=== PATIENT | female | born 1960 | race Caucasian/White ===

== ENCOUNTER 2016-10-20 09:02 | Outpatient (CLI) | payer OTHER | END 2016-10-20 09:04 | LOC: OUT 09:02 | PROVIDERS: ATTEND General Practice | DX: Z00.00 Encounter for general adult medical examination without abnormal findings (principal) | CPT/HCPCS: 99213 ==

== ENCOUNTER 2016-11-27 11:15 | Outpatient (CLI) | payer OTHER ==
[2016-11-27 11:33] LABS: BASOPHILS % 0.6 (0.0-1.5); EOSINOPHILS % 2.2 % (0.0-6.8); MEAN CORPUSCULAR HEMOGLOBIN 31.6 pg (28.0-34.0); MONOCYTES % 3.9 % (0.0-11.0); NEUTROPHILS # 4.6 # k/uL (1.4-7.7)
[2016-11-27 12:23] LABS: eGFR (African) > 60; eGFR (Non-African) > 60
== END 2016-11-27 11:16 ==
LOC: LAB 11:15
PROVIDERS: ATTEND General Practice
DX: Z01.812 Encounter for preprocedural laboratory examination (principal)
CPT/HCPCS: 36415; 80053; 85025; 85610; 85730

== ENCOUNTER 2016-12-01 07:04 | Day surgery (SDC) | payer OTHER ==
--- NOTE | 2016-12-01 14:37 | Operative Note ---
SURGEON: Juma Abrams MD ANESTHESIA: General with an LMA. ESTIMATED BLOOD LOSS: Less than 5 mL. PREOPERATIVE DIAGNOSIS: Postmenopausal bleeding. POSTOPERATIVE DIAGNOSIS: Postmenopausal bleeding. PROCEDURE PERFORMED: Diagnostic hysteroscopy with dilation and curettage (D & C). OPERATIVE PROCEDURE AND FINDINGS: I spoke with the patient prior to the operation. She was then taken to the operating room. After an adequate level of general anesthesia, she was placed in the lithotomy position, prepped and draped in a sterile fashion. A single- tooth tenaculum was placed on the cervix. The uterus was sounded to 7 cm. The cervix was dilated to a #29 Flores dilator. A hysteroscopy was performed using saline. She did have a significant amount of visible endometrium. The operating hysteroscope was removed and the dilation and curettage (D & C) was performed in the usual fashion with a sharp curette and the curettings were sent to pathology. This ended the operation. At the end of the operation, needle, sponge, and instruments were counted by the OR circulating nurse and speech therapist technician. I was told the counts were correct. The patient was awakened in the operating room and transferred from the operating room to the recovery room in very good condition. RHONDA
== END 2016-12-01 07:05 ==
LOC: OPSURG 07:04
PROVIDERS: ATTEND General Practice
DX: N95.0 Postmenopausal bleeding (principal)
CPT/HCPCS: 58558; J1100; J2250; J2405; J2704; J3010; J7030; J7120; S1016

== ENCOUNTER 2016-12-15 08:48 | Outpatient (CLI) | payer OTHER | END 2016-12-15 08:50 | LOC: OUT 08:48 | PROVIDERS: ATTEND General Practice | DX: N95.0 Postmenopausal bleeding (principal); Z79.890 Hormone replacement therapy | CPT/HCPCS: 99213 ==

== ENCOUNTER 2017-05-06 09:06 | Outpatient (CLI) | payer OTHER ==
[2017-05-06 09:39] LABS: eGFR (African) > 60; eGFR (Non-African) > 60
== END 2017-05-06 09:07 ==
LOC: LAB 09:06
PROVIDERS: ATTEND Family Medicine
DX: I10 Essential (primary) hypertension (principal); R53.82 Chronic fatigue, unspecified; Z11.59 Encounter for screening for other viral diseases
CPT/HCPCS: 36415; 80053; 80061; 84443; 86803

== ENCOUNTER 2017-06-01 09:06 | Outpatient (CLI) | payer OTHER | END 2017-06-01 09:30 | LOC: OUT 09:06 | PROVIDERS: ATTEND General Practice | DX: N95.0 Postmenopausal bleeding (principal); Z79.890 Hormone replacement therapy | CPT/HCPCS: 99214 ==

== ENCOUNTER 2017-06-29 07:24 | Day surgery (SDC) | payer OTHER ==
[2017-06-29] MEDS ORDERED: LACTATED RINGERS 1,000 ML IV.SOLN IV ONE (08:00)
[2017-06-29] MEDS ORDERED: SALINE FLUSH 10 ML DISP.SYRIN IVF ONE (08:00)
[2017-06-29] MEDS ORDERED: LIDOCAINE HCL/PF 2% 100 MG/5 ML VIAL IJ ONE (08:00)
[2017-06-29] MEDS ORDERED: SORBITOL IR ONE (08:00)
[2017-06-29] MEDS ORDERED: fentaNYL CITRATE/PF 100 MCG/ 2ML AMP ONE (08:00)
[2017-06-29] MEDS ORDERED: PROPOFOL 500 MG/50 ML VIAL IV ONE (08:00)
[2017-06-29] MEDS ORDERED: KETOROLAC TROMETHAMINE 30 MG/1ML VIAL ONE (08:00)
[2017-06-29] MEDS ORDERED: ACETAMINOPHEN 1,000 MG/100 ML INJ IV ONE (08:00)
[2017-06-29] MEDS ORDERED: ePHEDrine SULFATE 50 MG/1 ML IVP ONE (08:00)
[2017-06-29 08:19] LABS: BASOPHILS % 0.5 (0.0-1.5); EOSINOPHILS % 3.8 % (0.0-6.8); MEAN CORPUSCULAR HEMOGLOBIN 31.8 pg (28.0-34.0); MEAN CORPUSCULAR VOLUME 90.7 fl (80.0-100.0); MONOCYTES % 5.2 % (0.0-11.0); NEUTROPHILS # 3.9 # k/uL (1.4-7.7)
[2017-06-29 09:19] LABS: eGFR (African) > 60; eGFR (Non-African) > 60
--- NOTE | 2017-06-29 11:09 | Operative Note ---
SURGEON: Juma Abrams MD ANESTHESIA: General with an LMA. ESTIMATED BLOOD LOSS: Approximately 10 mL. PREOPERATIVE DIAGNOSIS: Perimenopausal abnormal uterine bleeding. POSTOPERATIVE DIAGNOSIS: Perimenopausal abnormal uterine bleeding. PROCEDURE PERFORMED: Hysteroscopic endometrial ablation. OPERATIVE PROCEDURE AND FINDINGS: The patient was taken to the operating room. After an adequate level of general anesthesia, she was prepped and draped in a sterile fashion in the lithotomy position. A single-tooth tenaculum was placed on the anterior lip of the cervix. The uterus sounded to 8 cm and the cervix was dilated to a number 35 Flores dilator. The operating hysteroscope was placed in the uterine cavity, which was normal in appearance. The roller barrel was used to coagulate the entire endometrial surface. This was accomplished without difficulty. Sorbitol was used as the distending media for the uterus. Once this was accomplished, all instruments were removed from the uterine cavity. Needle, sponge, and instrument counts were performed. I was told the counts were correct. The patient was awakened in the operating room and carefully taken down out of the lithotomy position and transferred to the recovery room in an awake and stable condition. cc: Dr. Alfredo ELLIS
== END 2017-06-29 07:25 ==
LOC: OPSURG 07:24
PROVIDERS: ATTEND General Practice
DX: N92.4 Excessive bleeding in the premenopausal period (principal)
CPT/HCPCS: 36415; 58563; 80053; 80061; 85025; 85610; 85730; A4555; J1885; J2001; J2704; J3010; J7030; J7120; S1016

== ENCOUNTER 2017-07-27 08:56 | Outpatient (CLI) | payer OTHER | END 2017-07-27 08:57 | LOC: OUT 08:56 | PROVIDERS: ATTEND General Practice | DX: Z48.89 Encounter for other specified surgical aftercare (principal) | CPT/HCPCS: 99213 ==

== ENCOUNTER 2017-09-17 07:27 | Outpatient (CLI) | payer OTHER ==
[2017-09-17 08:52] LABS: eGFR (African) > 60; eGFR (Non-African) > 60
== END 2017-09-17 07:30 ==
LOC: LAB 07:27
PROVIDERS: ATTEND Family Medicine
DX: E78.5 Hyperlipidemia, unspecified (principal)
CPT/HCPCS: 36415; 80053; 80061

== ENCOUNTER 2018-01-11 09:12 | Outpatient (CLI) | payer OTHER | END 2018-01-11 09:13 | LOC: OUT 09:12 | PROVIDERS: ATTEND General Practice | DX: Z01.419 Encounter for gynecological examination (general) (routine) without abnormal findings (principal) | CPT/HCPCS: 99213 ==

== ENCOUNTER 2018-08-30 14:31 | Outpatient (CLI) | payer OTHER ==
[2018-08-30 15:19] LABS: eGFR (Non-African) > 60
--- NOTE | 2018-08-30 15:23 | Diagnostic Imaging Report ---
VARINDER PHAM [facility] [id number] [facility].[address] [id number] Report Submission Date: Aug 30, 2018 3:16:46 PM [employer]INGE [employer]KER Patient Study Name: TINA SCHWARTZ Date: Aug 30, 2018 3:06:22 PM [employer]INGE [employer]KER Modality Type: DX Gender: F Description: CHEST 2VIEW : 60 Institution: [facility] Physician: VARINDER PHAM Examination: PA and lateral chest. History: Evaluate lung louise. WELLNESS CHECK. CHRONIC COUGH. NON-SMOKER. Comparison exam: None provided. Findings: PA and lateral views of the chest demonstrates a normal cardiac and mediastinal silhouette. No focal infiltrate. No blunting of the costophrenic margins. Nodular density left superior hilum. Osseous structures are appropriate for age. Impression: No acute pulmonary process. Nodular density left superior hilum - correlation with older studies recommended to determine stability. Electronically signed on Aug 30, 2018 3:16:46 PM FRINGE MAKER by: Donnie ELLIS
== END 2018-08-30 14:33 ==
LOC: LAB 14:31
PROVIDERS: ATTEND Family Medicine
DX: I10 Essential (primary) hypertension (principal); R73.9 Hyperglycemia, unspecified; R05 Cough
CPT/HCPCS: 36415; 71046; 80053; 80061; 83036